=== PATIENT | male | born 1965 | race Caucasian/White ===

== ENCOUNTER 2020-12-20 05:28 | Day surgery (SDC) | payer MEDICAID ==
[~2020-12-20 05:28] MED LIST: Midazolam 1 MG/ML 2 ML SDV ONE; fentaNYL 100 MCG/2 ML SDV ONE
[2020-12-20] MEDS ORDERED: fentaNYL 100 MCG/2 ML SDV IV ONE ×3 (05:29→06:30)
[2020-12-20] MEDS ORDERED: Midazolam 1 MG/ML 2 ML SDV IV ONE ×5 (05:29→06:42)
[2020-12-20] MEDS ORDERED: Dextrose 5%-0.45% NaCl 1,000 ML IV SCH (05:30)
[2020-12-20 09:17] VITALS: BP 119/80; PULSE 80
--- NOTE | 2020-12-20 09:55 | OR ---
DATE: 12/20/2020 PROCEDURES: Total colonoscopy, narrow-band imaging, and cold snare polypectomy. INSTRUMENT USED: PCF-H190DL Olympus video colonoscope. PREMEDICATIONS: Fentanyl 100 mcg intravenous, Versed 3 mg intravenous, nasal O2 cannula. The procedure was done under pulse oximetry, BP recording, and cafeteria monitor. INDICATION: The patient with recent progressive alteration in bowel habits and abnormal rectosigmoid area by CT, malignancy under consideration. Colonoscopic examination is done for detection of any polypoid lesions and removal, detection of any evidence of varices. Endoscopic hemostasis therapy if needed. DESCRIPTION OF PROCEDURE: Initial rectal exam was unremarkable. Rigid anoscopy showed some prominent appearing folds. The colonoscope was passed with ease. Prominent benign folds noted in the distal rectum, prominent venous channels noted without bleeding. The colonoscope was passed with ease up to the ileocecal area. Photographs were taken of the cecum showing diminutive polyp, NBI views were obtained, cold snare polypectomy was done, the tissue was retrieved and sent for histopathology. No bleeding was noted from any of the visualized areas at the commencement of the examination. Bowel preparation was found to be adequate, Greenleaf scale 3 in all the regions, total score 9. No stricture. No vascular ectasia. No large isolated ulcerations seen. No evidence of diffuse inflammatory bowel disease in the form of friability, contact bleeding, or ulcerations. Probing the proximal sides of folds and flexures using adequate distention and clearing up the stool material, withdrawal of the scope was made, cecum to rectum time over 6 minutes. Photographs were taken of the rectum with prominent folds and venous channels. No bleeding was noted from any of the visualized areas at the completion of examination. IMPRESSION: Diminutive cecal polyp. The patient tolerated the procedure well. [facility] /[id number]
== END 2020-12-20 08:59 | disposition home or self-care (01) ==
LOC: DL.ENDO 05:28
PROVIDERS: ATTEND Internal Medicine Gastroenterology
DX: D12.0 Benign neoplasm of cecum (principal); F17.210 Nicotine dependence, cigarettes, uncomplicated; J44.9 Chronic obstructive pulmonary disease, unspecified; C61 Malignant neoplasm of prostate; E53.8 Deficiency of other specified B group vitamins; Z80.0 Family history of malignant neoplasm of digestive organs
CPT/HCPCS: J2250; J3010; J7042

== ENCOUNTER 2023-05-25 19:11 | Emergency (ER) | payer MEDICARE, MEDICAID ==
[2023-05-25 19:42] LABS: BASOPHILS PERCENT AUTO 0.3 % (0.0-1.0); EOSINOPHILS PERCENT AUTO 1.5 % (1.0-3.0); HEMOGLOBIN 15.2 g/dL (14.0-18.0); LYMPHOCYTES PERCENT AUTO 13.6 % (20.5-50.1); MEAN CORPUSCULAR HEMOGLOBIN 34.5 pg (27.0-34.0); MEAN CORPUSCULAR HGB CONC 33.8 g/dL (33.0-35.0); MEAN CORPUSCULAR VOLUME 102.3 fL (80-100); MONOCYTES PERCENT AUTO 8.8 % (2-8); NEUTROPHILS PERCENT AUTO 75.8 % (42.2-75.2); PLATELET COUNT,PLT 249 10^3/uL (150-450); WHITE BLOOD CELL COUNT,WBC 6.1 10^3/uL (5.0-10.0)
[2023-05-25 19:47] VITALS: BP 121/98; PULSE 74
[2023-05-25 20:02] LABS: ALBUMIN 2.5 g/dL (3.4-5.0); ANION GAP 13.1 mEq/L (7-13); BILIRUBIN TOTAL 0.2 mg/dL (0.2-1.0); BUN/CREATININE RATIO 8.1 (No establ ref range); CALCIUM 7.5 mg/dL (8.5-10.1); CREATININE 0.62 mg/dL (0.70-1.30); EST CRCL DRUG DOSING (CG) 129.63 mL/min; MAGNESIUM 1.5 mg/dL (1.8-2.4); POTASSIUM,K 3.1 mmol/L (3.5-5.1); PROTEIN TOTAL,TP 7.4 g/dL (6.4-8.2)
[2023-05-25 20:06] LABS: A/G RATIO 0.51
[2023-05-25] MEDS ORDERED: Magnesium Sulfate/Water 2 GM in Premix Bag 1 BAG IV ONE (20:14)
[2023-05-25] MEDS ORDERED: Potassium Chloride 10 MEQ Tab.ER PO ONE (20:14)
[2023-05-25] MEDS ORDERED: Ketorolac 30 MG/ML SDV IM ONE (20:15)
[2023-05-25] MEDS ORDERED: Heparin Sodium 5,000 Units/ML Vial IVPUSH ONE (21:14)
[2023-05-25] MEDS ORDERED: Heparin Sodium/0.45% NaCl 25,000 UNITS/500 ML BAG IV SCH (21:15)
== END 2023-05-25 21:52 ==
LOC: DL.ED 19:11
DX: S43.014A Anterior dislocation of right humerus, initial encounter (principal); F10.920 Alcohol use, unspecified with intoxication, uncomplicated; E87.6 Hypokalemia; E83.42 Hypomagnesemia; I99.8 Other disorder of circulatory system; J44.9 Chronic obstructive pulmonary disease, unspecified; F17.210 Nicotine dependence, cigarettes, uncomplicated; Z79.899 Other long term (current) drug therapy; X58.XXXA Exposure to other specified factors, initial encounter
CPT/HCPCS: 36415; 73020-RT; 73030-RT; 80053; 80307; 83735; 85025; 85730; 96365; 96372; 96375; 99285; 99285-25; A9270-GY; J1644; J1885; J3475

== ENCOUNTER 2024-02-08 10:09 | Emergency (ER) | payer MEDICARE, MEDICAID ==
[2024-02-08] MEDS ORDERED: Sodium Chloride 0.9% 10 ML Syringe FLUSH PRN (10:39)
[2024-02-08 10:54] LABS: BASOPHILS PERCENT AUTO 0.9 % (0.0-1.0); EOSINOPHILS PERCENT AUTO 1.6 % (1.0-3.0); HEMATOCRIT 37.8 % (40.0-54.0); HEMOGLOBIN 12.3 g/dL (14.0-18.0); LYMPHOCYTES PERCENT AUTO 17.6 % (20.5-50.1); MEAN CORPUSCULAR HEMOGLOBIN 30.8 pg (27.0-34.0); MEAN CORPUSCULAR HGB CONC 32.5 g/dL (33.0-35.0); MEAN CORPUSCULAR VOLUME 94.5 fL (80-100); MONOCYTES PERCENT AUTO 17.6 % (2-8); NEUTROPHILS PERCENT AUTO 62.3 % (42.2-75.2); PLATELET COUNT,PLT 265 10^3/uL (150-450); WHITE BLOOD CELL COUNT,WBC 4.3 10^3/uL (5.0-10.0)
[2024-02-08 11:11] LABS: PROTHROMBIN TIME 10.2 SEC (9.0-12.0)
[2024-02-08 11:13] LABS: ALBUMIN 2.7 g/dL (3.4-5.0); ANION GAP 13.8 mEq/L (7-13); BILIRUBIN TOTAL 0.2 mg/dL (0.2-1.0); BUN/CREATININE RATIO 12.6 (No establ ref range); CALCIUM 8.8 mg/dL (8.5-10.1); CREATININE 0.87 mg/dL (0.70-1.30); EST CRCL DRUG DOSING (CG) 85.74 mL/min; POTASSIUM,K 3.8 mmol/L (3.5-5.1); PROTEIN TOTAL,TP 7.3 g/dL (6.4-8.2)
[2024-02-08 11:14] LABS: A/G RATIO 0.59
[2024-02-08 11:48] VITALS: BP 136/82; PULSE 75
== END 2024-02-08 12:52 | disposition home or self-care (01) ==
LOC: DL.ED 10:09
DX: R60.0 Localized edema (principal); J44.9 Chronic obstructive pulmonary disease, unspecified; Z79.899 Other long term (current) drug therapy
CPT/HCPCS: 36415; 80053; 85025; 85610; 93971; 99284